=== PATIENT | female | born 1955 | race African-American/Black ===

== ENCOUNTER 2017-09-02 09:25 | Emergency (ER) | payer OTHER ==
[~2017-09-02] VITALS: Ht 170.2 cm; Wt 56.3 kg
[~2017-09-02 09:25] MED LIST: AMLODIPINE BESYL5 MG PO; CALCIUM CARB1 TABLET PO; CLONIDINE HCL0.1 MG PO; COLACE100 MG PO; CYMBALTA20 MG PO; CYMBALTA60 MG PO; DESYREL100 MG PO; DICYCLOMINE HCL20 MG PO; ENDOCET 5-3251 EACH PO; ERGOCALCIF50000 UNIT PO; FERROUS SULFAT325 MG PO; KEFLEX500 MG PO; LISINOPRIL10 MG PO; LOVENOX40 MG/0.4 SC; METFORMIN HCL1000 MG PO; NEURONTIN100 MG PO; NICOTINE PATCH1 EACH TD; NIFEDIPINE ER30 MG PO; NOVOLOG 10100 UNITS/ SC; OXYCONTIN10 MG PO; ROXICODONE5 MG PO; ZOFRAN4 MG PO
[2017-09-02 10:04] LABS: HEMATOCRIT 37.1 % (36.0-46.0); MCH 29.2 PG (29.0-34.0); MCHC 32.6 G/DL (30.0-36.0); MCV 89.6 FL (83-99); MEAN PLAT.VOLUME 10.9 uM^3 (9.5-12.4); PLATELET COUNT 177 K/uL (156-360); RBC DIS.WIDTH-CV 13.7 % (11.8-14.6); RBC DIS.WIDTH-SD 44.9 % (39-53); RED BLOOD COUNT 4.14 M/uL (3.80-5.20); WHITE BLOOD COUNT 6.7 K/uL (4.1-10.2)
[2017-09-02 10:11] LABS: CHLORIDE 107 mEq/L (99-109); POTASSIUM 4.8 mEq/L (3.7-5.4); SODIUM 139 mEq/L (136-147)
[2017-09-02 10:13] LABS: GLUCOSE 250 mg/dL (70-99)
[2017-09-02 10:15] LABS: ANION GAP 8 MEQ/L (2-14)
[2017-09-02 10:17] LABS: GFR ESTIMATE (CALCULATED) 59 mL/min/
[2017-09-02 10:18] LABS: UREA NITROGEN (BUN) 22 mg/dL (9-23)
[2017-09-02 10:26] LABS: TROP-I INTERPRETATION NEGATIVE; TROPONIN-I 0.01 ng/mL (0.0-0.30)
[2017-09-02] MEDS ORDERED: FLAGYL500 MG PO (11:55)
[2017-09-02] MEDS ORDERED: LEVAQUIN750 MG PO (11:55)
[2017-09-02] MEDS ORDERED: ULTRAM50 MG PO (11:57)
[2017-09-02 15:27] VITALS: BP 190/109
== END 2017-09-02 16:39 | disposition home or self-care (01) ==
LOC: EME 09:25
DX: K52.9 Noninfective gastroenteritis and colitis, unspecified (principal); R10.84 Generalized abdominal pain; I11.0 Hypertensive heart disease with heart failure; I50.9 Heart failure, unspecified; K31.84 Gastroparesis; E11.9 Type 2 diabetes mellitus without complications; Z79.4 Long term (current) use of insulin; E78.5 Hyperlipidemia, unspecified; F17.200 Nicotine dependence, unspecified, uncomplicated; Z86.73 Personal history of transient ischemic attack (TIA), and cerebral infarction without residual deficits; F32.9 Major depressive disorder, single episode, unspecified
CPT/HCPCS: 71020; 74174; 80048; 81003; 84484; 85027; 93005; 99281; 99285; J1630; J3010